=== PATIENT | female | born 1980 | race African-American/Black ===

== ENCOUNTER 2022-09-20 19:30 | Inpatient (IN) | payer MEDICARE ==
[2022-09-20] MEDS ORDERED: MAGNESIUM HYDROXIDE 2,400 MG/30 ML CUP PO PRN (20:32)
[2022-09-20] MEDS ORDERED: MAG HYDROX/AL HYDROX/SIMETH 30 ML CUP PO PRN (20:32)
[2022-09-20] MEDS ORDERED: ACETAMINOPHEN TAB 325 MG TAB PO PRN (20:32)
[2022-09-20] MEDS ORDERED: HALOPERIDOL LACTATE 5 MG/ML 1 ML VIAL IM PRN (20:35)
[2022-09-20] MEDS ORDERED: haloperidoL 5 MG TAB PO PRN (20:35)
[2022-09-20] MEDS ORDERED: LORazepam 2 MG/ML INJ IM PRN (20:36)
[2022-09-20] MEDS ORDERED: traZODone HCL 100 MG TAB PO SCH (21:00)
--- NOTE | 2022-09-21 00:08 | P.CONS ---
History of Present Illness - Reason for Consult Consult date: 09/21/22 - History of Present Illness Patient is a 42-year-old female with no known PMH who was transferred from [facility] with the patient initially had presented with psychosis. The patient was transferred to [facility] unit where she was seen and evaluated accompanied by a mental health unit RN. The patient denied any chronic medical illnesses. She also denied any physical complaints. She reports she feels well and is wishing to be discharged from the hospital. She had experienced chest discomfort, shortness of breath, fever, chills, cough, nausea, vomiting, abdominal pain, diarrhea. She reports smoking half pack of cigarettes daily. Denied illicit substance or alcohol use. Review of systems: Pertinent positives and negatives as discussed in HPI, a complete review of systems was performed and all other systems are negative. Physical examination: General: non toxic, no distress, appears at stated age, obese Derm: no unusual rashes/lesions, no unusual ecchymoses, warm, dry Head: atraumatic, normocephalic, symmetric Eyes: EOMI, no lid lag, anicteric sclera ENT: Nose and ears atraumatic, no thrush, no pharyngeal erythema Neck: trachea midline, supple Mouth: no lip lesion, mucus membranes moist, poor dentition Cardiovascular: S1S2 reg, no murmur, no edema Lungs: CTA bilateral, no rhonchi, no rales , no accessory muscle use Abdominal: soft, nontender to palpation, no guarding Ext: no gross muscle atrophy, no contractures, Neuro: No gross focal neuro deficits noted Psych: Alert, oriented, pressured speech Assessment: Psychosis Tobacco abuse Plan: Defer management to primary psychiatry service Advised on the importance of cessation Thank you for allowing us to participate in the care of this patient. We will follow peripherally. Do not hesitate to contact us with questions. Someone can be reached from the [facility] hospitalist group at all hours of the day at [phone]. Past Medical History History of Any Multi-Drug Resistant Organisms: None Reported Smoking Status: Never smoker Medications and Allergies Home Medications Medication Instructions Recorded Confirmed Type No Known Home Medications 09/20/22 09/20/22 History Allergies Allergy/AdvReac Type Severity Reaction Status Date / Time No Known Allergies Allergy Verified 09/20/22 21:46 Physical Exam Vitals: Vital Signs Temp Pulse Resp BP 09/20/22 21:54 98.3 F 102 H 16 143/101 Intake and Output 09/20/22 09/20/22 09/21/22 14:59 22:59 06:59 Other: Weight 110 kg
--- NOTE | 2022-09-21 13:54 | P.HP ---
Psychiatric H&P - . H&P Date: 09/21/22 History & Physical: Allergies Allergy/AdvReac Type Severity Reaction Status Date / Time No Known Allergies Allergy Verified 09/20/22 21:46 Vital Signs Temp 98.3 F 09/20/22 21:54 Pulse 102 H 09/20/22 21:54 Resp 16 09/20/22 21:54 BP 143/101 09/20/22 21:54 Pulse Ox FiO2 Intake & Output 09/20/22 09/21/22 09/21/22 18:59 06:59 18:59 Weight 110 kg Laboratory Last Values TSH 2.820 mIU/L (0.465-4.680) 09/21/22 06:47 09/21/22 13:48 IDENTIFYING DATA: Patient is a 42-year-old -[place] female, currently lives alone in a duplex, has no kids and collects SSI HPI: Patient presented to the hospital as a transfer from [facility]. Patient apparently is a [facility] resident. Patient was transferred on a petition and certificate. Patient according to petition states that she "appears to be responding to internal stimuli, seen yelling at people who were not there. Exhibiting delusional thought". Petition also states that "content, spoke of great evil. Also exhibited unsanitary behaviors such as keeping personal hygiene and belongings in used toilet". Patient seen wandering the hallways today and agreeable district television writer. She was loud at times, appeared to have very poor insight and judgment. Believes that she did not have a mental illness, unkempt appearance poor hygiene. She claims that she was at [facility] for 4 days before being transferred. States that "the keysmith didn't have a court order on me" and states that the police brought her to the hospital anyways. She states that "it was for no reason at all". She claims that she was released from court and the police has brought her in. She has very poor insight, she was religiously preoccupied, rambling at times having loose associations. With seen responding to internal stimuli. Patient denies any paranoid denies any changes in mood or anxiety. States that her sleep and appetite are fair. She has poor reality testing. Patient denies any suicidal or homicidal ideations intent or plan. At this time patient denies any auditory or visual hallucinations. Patient denies any flight of ideas racing thoughts and increased in goal directed behavior. Patient admits to using cigarettes daily and marijuana recreationally. PAST PSYCHIATRIC HISTORY: Patient states that she does not have a mental illness. [Patient denies being on any psychiatric medications however when speaking about different medications she claims that she does not react to "all of them" and refuses any of them.] [Patient denies any previous psychiatric hospitalizations.] [Patient denies any psychiatric outpatient follow-up.] [Patient denies any history of suicide attempts in the past.] PMH:[denies] ALLERGIES: as per EMR CHEMICAL DEPENDENCY HISTORY: as per HPI FAMILY PSYCHIATRIC/SUBSTANCE USE HISTORY: Aims that she does not know most of her family. SOCIAL HISTORY: Patient was born and raised in [place]. States that she completed high school and did some college. Denies any legal history. Claims that she does not have any kids, lives alone in a duplex, collects SSI]. MENTAL STATUS EXAM: General Appearance: Patient appears to be overweight, disheveled appearance, stated age is alert, difficult to redirect, attempts to cooperate. Patient appears to have [poor] hygiene and grooming. Behavior: Patient is seated without any agitated behavior. Loud at times, intrusive. Responding to internal stimuli. Speech: Patient's speech is [fluent and nonpressured.] Loud at times. Mood/Affect: Patient reports their mood is ["okay"], affect is congruent Suicidality/Homicidality: Patient denies having any homicidal ideation intent or plan. [Denies any suicidal ideations intent or plan] Perceptions: Patient denies any visual hallucinations [and denies any auditory hallucinations] Though content/process: [There is no evidence of any delusional thought content.] Rambling, loose associations. Religiously preoccupied Memory and concentration: AOX3, grossly intact for the purposes of this session. Can spell "WORLD" backwards Judgment and insight: [poor] STRENGTHS/WEAKNESSES: strength is that patient is [resilient]. Weakness is that patient [has poor judgment and is impulsive] INTELLECT: [average] IMPRESSIONS: []Schizophrenia Cannabis use disorder Nicotine dependence PLAN: -Patient is admitted under [involuntary] status to MHU for stabilization of psychiatric symptoms and safety. Patient has [not] signed [adult voluntary form and] [medication consent] and is placed in patient's chart. [A second certification was completed and along with petition will be filed for court.] -Medications : Will start patient on [will start paliperidone by mouth 3 mg daily at bedtime for psychosis, trazodone when necessary daily at bedtime for insomnia.] -Ativan [and Haldol] PRN for agitation/aggression -Patient was informed of the risks, benefits and side effects of the medication -Internal Medicine consult to perform medical evaluation and physical. -NRT - [nicotine patch] -SW on board for discharge planning. Encourage patient to participate in groups to work on coping skills. [Will await deferral and court date.]
[2022-09-21] MEDS: NICOTINE 14MG/24HR PATCH TRANSDERM SCH (13:55)
[2022-09-21 14:38] LABS: Chol/HDL Ratio 3.23 Ratio; LDL Cholesterol,Calculated 87.9 mg/dL (0.0-131.0); VLDL Calculation 16.36 mg/dL (5.00-40.00)
[2022-09-21] MEDS: PALIPERIDONE 3 MG TAB.ER.24 PO SCH (19:54)
[2022-09-22] MEDS: NICOTINE 14MG/24HR PATCH TRANSDERM SCH (09:28)
--- NOTE | 2022-09-22 13:37 | P.PN ---
Progress Note - Text Progress Note Date: 09/22/22 Interval history: Patient was seen sitting on her bed and was directable and agreeable to speak with food writer. Patient was reading out loud the Bible. She continues to adamantly refuse medications and believes that she does not need to be in the hospital. She was asking about her claim attorney. She continues to be focused on discharge and minimizing her need for psychiatric treatment. Has been going to minimal groups, continuing his poor hygiene and she gained and poor grooming, denying any mood or anxiety. Intent is to be noted to be speaking to herself. At this time patient denies any suicidal or homicidal ideations intent or plan. Denies any Auditory or visual hallucinations. Mental status exam: General Appearance: Patient appears to be mildly overweight, disheveled appearance stated age is alert, directable. Behavior: No agitated behavior. Patient is calm and directable responding to internal stimuli. Speech: Patient's speech is fluent and nonpressured. [place] Mood/Affect: Mood is improving mildly, affect is congruent and constricted. Suicidality/Homicidality: Patient denies having any suicidal or homicidal ideation intent or plan. Perceptions: Patient denies any auditory or visual hallucinations. Though content/process: Religiously preoccupied, minimizing her need for treatment. [place]. Memory and concentration: AOX3, grossly intact for the purposes of this session Judgment and insight: Poor Assessment/Plan: Continue with current diagnosis. Patient continues to meet criteria for inpatient psychiatric admission for symptom stabilization and safety.Patient will be maintained on current psychotropic medication regimen. patient has been refusing her medications. Monitor for medication compliance and for any psychotropic medication side effects. Will continue to monitor ongoing response to treatment. Encouraged participation in milieu. awaiting court and deferral date
[2022-09-22] MEDS: PALIPERIDONE 3 MG TAB.ER.24 PO SCH (20:35)
[2022-09-23] MEDS: NICOTINE 14MG/24HR PATCH TRANSDERM SCH (12:03)
--- NOTE | 2022-09-23 12:59 | P.PN ---
Progress Note - Text Progress Note Date: 09/23/22 Interval History: Patient was seen resting in bed and was directable and agreeable to speak with freelance writer in her room. Nightly, the patient is not overtly reporting any suicidal or homicidal ideation, intention, or plan. She reports no auditory or visual hallucinations. She denies any paranoia or other delusions. However, the patient displays significant poverty of thought is unable to provide any clear history of events leading up to this hospitalization. She also firmly states that she does not require any medications in regards to her general mental health. She is noted to be responding to internal stimuli. Mental Status Exam: General Appearance: Patient appears to be stated age is alert, directable, and cooperative. Behavior: Patient is calmly seated without any agitated behavior. Speech: Patient's speech is fluent and nonpressured. Nonspontaneous. Minimal. Monotone. Mood/Affect: Mood is "I don't need to be here," affect is blunted. Suicidality/Homicidality: Patient denies any suicidal or homicidal ideation. Perceptions: Patient denies any visual hallucinations and denies any auditory hallucinations Though content/process: [place]. Poverty of thought. Memory and concentration: AOX3, grossly intact for the purposes of this session Judgment and insight: Very poor Vital Signs Temp 98.3 F 09/20/22 21:54 Pulse 108 H 09/23/22 01:32 Resp 18 09/23/22 01:32 BP 149/101 09/23/22 01:32 Pulse Ox 99 09/23/22 01:32 FiO2 Intake & Output 09/22/22 09/23/22 09/23/22 18:59 06:59 18:59 Weight 110 kg Assessment Schizophrenia Cannabis use disorder Nicotine dependence Plan: -Patient continues to meet criteria for inpatient psychiatric admission for symptom stabilization and safety. The patient has been petitioned and certified. -Medications: Continue Invega 3 mg by mouth at bedtime. Patient is refusing her medication. -When necessary Ativan and Haldol for agitation/aggression. -NRT - nicotine patch -SW on board for discharge planning. Encouraged the patient to participate in milieu.
[2022-09-23] MEDS: PALIPERIDONE 3 MG TAB.ER.24 PO SCH (21:11)
[2022-09-24] MEDS: NICOTINE 14MG/24HR PATCH TRANSDERM SCH (08:39)
--- NOTE | 2022-09-24 12:48 | P.PN ---
Progress Note - Text Progress Note Date: 09/24/22 Interval History: Patient was seen resting in bed and appeared to be in no acute distress. She is minimal and conversation with this provider. She was noted by staff to be awake at night responding to internal stimuli. She was talking loudly up and down the chen became irritated when approached. She is eventually able to be directed back to her room. She continues to refuse any medications. Mental Status Exam: General Appearance: Patient appears to be stated age is alert, directable, and cooperative. Behavior: Patient is calmly seated without any agitated behavior. Speech: Patient's speech is fluent and nonpressured. Nonspontaneous. Minimal. Monotone. Mood/Affect: Mood is "when can I go," affect is flat Suicidality/Homicidality: Patient denies any suicidal or homicidal ideation. Perceptions: Patient denies any visual hallucinations and denies any auditory hallucinations Though content/process: [place]. Poverty of thought. Memory and concentration: AOX3, grossly intact for the purposes of this session Judgment and insight: Very poor Vital Signs Temp 97.8 F 09/24/22 06:54 Pulse 85 09/24/22 06:54 Resp 20 09/24/22 06:54 BP 143/85 09/24/22 06:54 Pulse Ox 99 09/23/22 01:32 FiO2 Laboratory Results Triglycerides 81.80 mg/dL (0.00-149.00) 09/21/22 06:47 Cholesterol 151.00 mg/dL (0.00-200.00) 09/21/22 06:47 LDL Cholesterol, Calc 87.9 mg/dL (0.0-131.0) 09/21/22 06:47 VLDL Cholesterol, Calc 16.36 mg/dL (5.00-40.00) 09/21/22 06:47 HDL Cholesterol 46.70 mg/dL (40.00-60.00) 09/21/22 06:47 Cholesterol/HDL Ratio 3.23 Ratio 09/21/22 06:47 TSH 2.820 mIU/L (0.465-4.680) 09/21/22 06:47 Assessment Schizophrenia Cannabis use disorder Nicotine dependence Plan: -Patient continues to meet criteria for inpatient psychiatric admission for symptom stabilization and safety. The patient has been petitioned and certified. -Medications: Change medication to Risperdal 2 mg by mouth twice a day. Patient is refusing her medication. -When necessary Ativan and Haldol for agitation/aggression. -NRT - nicotine patch -SW on board for discharge planning. Encouraged the patient to participate in milieu.
[2022-09-24] MEDS: risperiDONE 2 MG TAB PO SCH (20:39)
[2022-09-25] MEDS: NICOTINE 14MG/24HR PATCH TRANSDERM SCH (09:04)
[2022-09-25] MEDS: risperiDONE 2 MG TAB PO SCH ×2 (09:04→20:55)
--- NOTE | 2022-09-25 11:47 | P.PN ---
Progress Note - Text Progress Note Date: 09/25/22 Interval History: Patient was seen resting in bed and appeared to be in no acute distress. She continues to be minimal in conversation. She is overtly denying any suicidal or homicidal ideation, intention, and/or plan. She is denying any auditory or visual hallucinations. Paranoia or other delusions. She continues to refuse any psychotropic medications. She has been noted by staff to attend group this morning. The patient remains fixated on discharge however is continuing to refuse any medications. He continues to be observed to be responding to internal stimuli. Mental Status Exam: Grossly unchanged General Appearance: Patient appears to be stated age is alert, directable, and cooperative. Behavior: Patient is calmly seated without any agitated behavior. Speech: Patient's speech is fluent and nonpressured. Nonspontaneous. Minimal. Monotone. Mood/Affect: Mood is "can I go home?," affect is flat Suicidality/Homicidality: Patient denies any suicidal or homicidal ideation. Perceptions: Patient denies any visual hallucinations and denies any auditory hallucinations Though content/process: [place]. Poverty of thought. Memory and concentration: AOX3, grossly intact for the purposes of this session Judgment and insight: Very poor Vital Signs Temp 97.8 F 09/24/22 06:54 Pulse 85 09/24/22 06:54 Resp 20 09/24/22 06:54 BP 143/85 09/24/22 06:54 Pulse Ox 99 09/23/22 01:32 FiO2 Assessment Schizophrenia Cannabis use disorder Nicotine dependence Plan: -Patient continues to meet criteria for inpatient psychiatric admission for symptom stabilization and safety. The patient has been petitioned and certified. Court scheduled for Friday. -Medications: Change medication to Risperdal 2 mg by mouth twice a day. Patient is refusing her medication. -When necessary Ativan and Haldol for agitation/aggression. -NRT - nicotine patch -SW on board for discharge planning. Encouraged the patient to participate in milieu.
[2022-09-26] MEDS: NICOTINE 14MG/24HR PATCH TRANSDERM SCH (08:26)
[2022-09-26] MEDS: risperiDONE 2 MG TAB PO SCH ×2 (08:26→21:47)
--- NOTE | 2022-09-26 11:44 | P.PN ---
Progress Note - Text Progress Note Date: 09/26/22 Interval History: Patient was seen wandering the hallways and was agreeable to speak with narrative writer in the office. Prior to walking into the office, the patient was noted to be speaking to herself. It to be responding to internal stimuli. Upon assessment in the office, the patient is vehemently denying any suicidal or homicidal ideation, intention, and/or plan. She is not reporting any auditory or visualizations. She is denying any paranoia or other delusions. The patient was informed that she is scheduled for court on Friday. She vehemently denies this. She states that she does not need to go to court and she does not need any medications. Mental Status Exam: General Appearance: Patient appears to be stated age is alert, directable, and cooperative. Behavior: Patient is calmly seated without any agitated behavior. Speech: Patient's speech is fluent and nonpressured. Nonspontaneous. Minimal. Monotone. Mood/Affect: Mood is "I'm not going to court," affect is flat Suicidality/Homicidality: Patient denies any suicidal or homicidal ideation. Perceptions: Patient denies any visual hallucinations and denies any auditory hallucinations Though content/process: [place]. Poverty of thought. Illogical. Memory and concentration: AOX3, grossly intact for the purposes of this session Judgment and insight: Very poor Vital Signs Temp 97.1 F L 09/26/22 06:52 Pulse 67 09/26/22 06:52 Resp 16 09/26/22 06:52 BP 140/100 09/26/22 06:52 Pulse Ox 99 09/23/22 01:32 FiO2 Intake & Output 09/25/22 09/26/22 09/26/22 18:59 06:59 18:59 Weight 110 kg Assessment Schizophrenia Cannabis use disorder Nicotine dependence Plan: -Patient continues to meet criteria for inpatient psychiatric admission for symptom stabilization and safety. The patient has been petitioned and certified . Court scheduled for Friday. -Medications: Change medication to Risperdal 2 mg by mouth twice a day. Patient is refusing her medication. -When necessary Ativan and Haldol for agitation/aggression. -NRT - nicotine patch -SW on board for discharge planning. Encouraged the patient to participate in milieu.
[2022-09-26 11:49] LABS: Basophils % (A) 0 %; Eosinophils # (A) 0.1 k/uL (0-0.7); Eosinophils % (A) 2 %; HCT 36.7 % (34.0-46.0); HGB 11.5 gm/dL (11.4-16.0); Hypochromasia Slight; Lymphocytes # (A) 1.9 k/uL (1.0-4.8); Lymphocytes % (A) 32 %; MCH 27.1 pg (25.0-35.0); MCHC 31.2 g/dL (31.0-37.0); MCV 86.8 fL (80.0-100.0); Mean Platelet Volume 7.1; Monocytes # (A) 0.4 k/uL (0-1.0); Monocytes % (A) 7 %; Neutrophils # (A) 3.3 k/uL (1.3-7.7); Neutrophils % (A) 57 %; Platelet Count 325 k/uL (150-450); RBC 4.22 m/uL (3.80-5.40); RDW 15.4 % (11.5-15.5); WBC 5.9 k/uL (3.8-10.6)
[2022-09-26 12:09] LABS: ALT 32 U/L (4-34); AST 24 U/L (14-36); African American GFR (CKD) 77 (>60 ml/min/1.73 sqM); Albumin 3.8 g/dL (3.5-5.0); Alkaline Phosphatase 115 U/L (38-126); Anion Gap 8 mmol/L; Blood Urea Nitrogen 17 mg/dL (7-17); Calcium 9.1 mg/dL (8.4-10.2); Carbon Dioxide 29 mmol/L (22-30); Chloride 101 mmol/L (98-107); Glucose 96 mg/dL (74-99); Non-African American GFR(CKD) 67 (>60 ml/min/1.73 sqM); Potassium 4.5 mmol/L (3.5-5.1); Sodium 138 mmol/L (137-145); Total Bilirubin 0.4 mg/dL (0.2-1.3); Total Protein 7.1 g/dL (6.3-8.2)
[2022-09-27] MEDS: risperiDONE 2 MG TAB PO SCH ×2 (08:27→20:58)
[2022-09-27] MEDS: NICOTINE 14MG/24HR PATCH TRANSDERM SCH (08:27)
--- NOTE | 2022-09-27 11:05 | P.PN ---
Progress Note - Text Progress Note Date: 09/27/22 Interval History: Patient was seen resting in bed and agreeable to speak with the senior grant writer in her room. Currently, the patient is overtly denying any suicidal or homicidal ideation, intention, and/or plan. She is overtly denying any auditory or visual hallucinations. She continues to refuse any medication. She reports no medical issues or concerns and denies any chest pain, stress breath, palpitations, lightheadedness, or blurry vision. She was reminded that she has court sched uled for Friday. The patient is in agreement for court and reports that she will tell them how she does not require any medications. She continues to be observed by staff to respond to internal stimuli. Mental Status Exam: General Appearance: Patient appears to be stated age is alert, directable, and cooperative. Behavior: Patient is calmly seated without any agitated behavior. Speech: Patient's speech is fluent and nonpressured. Nonspontaneous. Minimal. Monotone. Mood/Affect: Mood is "I'm okay," affect is flat Suicidality/Homicidality: Patient denies any suicidal or homicidal ideation. Perceptions: Patient denies any visual hallucinations and denies any auditory hallucinations Though content/process: [place]. Poverty of thought. Illogical. Memory and concentration: AOX3, grossly intact for the purposes of this session Judgment and insight: Very poor Vital Signs Temp 97.8 F 09/27/22 05:57 Pulse 94 09/27/22 05:57 Resp 18 09/27/22 05:57 BP 139/108 09/27/22 05:57 Pulse Ox 100 09/27/22 05:57 FiO2 Laboratory Results - Last 24 Hours 09/26/22 09/26/22 10:42 10:42 WBC 5.9 RBC 4.22 Hgb 11.5 Hct 36.7 MCV 86.8 MCH 27.1 MCHC 31.2 RDW 15.4 Plt Count 325 MPV 7.1 Neutrophils % 57 Lymphocytes % 32 Monocytes % 7 Eosinophils % 2 Basophils % 0 Neutrophils # 3.3 Lymphocytes # 1.9 Monocytes # 0.4 Eosinophils # 0.1 Basophils # 0.0 Hypochromasia Slight Sodium 138 Potassium 4.5 Chloride 101 Carbon Dioxide 29 Anion Gap 8 BUN 17 Creatinine 1.04 Est GFR (CKD-EPI)AfAm 77 Est GFR (CKD-EPI)NonAf 67 Glucose 96 Calcium 9.1 Total Bilirubin 0.4 AST 24 ALT 32 Alkaline Phosphatase 115 Total Protein 7.1 Albumin 3.8 Assessment Schizophrenia Cannabis use disorder Nicotine dependence Plan: -Patient continues to meet criteria for inpatient psychiatric admission for symptom stabilization and safety. The patient has been petitioned and certified. Court scheduled for Friday. -Medications: We'll continue Risperdal 2 mg by mouth twice a day. Patient is refusing her medication. -When necessary Ativan and Haldol for agitation/aggression. -NRT - nicotine patch -SW on board for discharge planning. Encouraged the patient to participate in milieu.
[2022-09-28 06:47] VITALS: TEMP 98.3
[2022-09-28] MEDS: risperiDONE 2 MG TAB PO SCH ×3 (09:20→20:54)
[2022-09-28] MEDS: NICOTINE 14MG/24HR PATCH TRANSDERM SCH (09:26)
--- NOTE | 2022-09-28 12:01 | P.PN ---
Subjective Progress Note Date: 09/28/22 Principal diagnosis: Assessment Schizophrenia Cannabis use disorder Nicotine dependence Patient Name: Michelle Marie Date of : 80 Patient Status: Inpatient Attending Provider: Miguel Allen Subjective data: An attempt was made to see the patient for assessment Patient was laying in her bed and was sleeping comfortably but was easily arousable However on waking up the patient continues to ramble with significant flight of ideas circumstantiality and tangentiality It is unable to have any reasonable conversation with this patient due to her psychosis circumstantiality and pressured speech Mental Status Exam: General Appearance: Patient appears to be stated age is alert, unable to be directable, Behavior: Patient was laying down initially and was easily aroused Speech: Patient's speech is fluent and pressured. Speech is pressured circumstantial and tangential. Mood/Affect: Mood is "I'm okay," affect is flat Suicidality/Homicidality: Patient denies any suicidal or homicidal ideation. Perceptions: Patient denies any visual hallucinations and denies any auditory hallucinations Though content/process: [place]. Poverty of thought. Illogical. Memory and concentration: AOX3, Judgment and insight: Very poor Assessment Schizophrenia Cannabis use disorder Nicotine dependence Plan: -Patient continues to meet criteria for inpatient psychiatric admission for symptom stabilization and safety. The patient has been petitioned and certified. Court scheduled for Friday. -Medications: We'll continue Risperdal 2 mg by mouth twice a day. Patient is refusing her medication. -When necessary Ativan and Haldol for agitation/aggression. -NRT - nicotine patch - on board for discharge planning. Encouraged the patient to participate in milieu. Jose Carlos Ulrich M.D. 09/28/2022 Objective - Vital Signs Vital signs: Vital Signs Temp 98.3 F 09/28/22 05:00 Pulse 106 H 09/28/22 05:00 Resp 19 09/28/22 05:00 BP 104/67 09/28/22 05:00 Pulse Ox 99 09/28/22 05:00 FiO2 - Labs CBC & Chem 7: 09/26/22 10:42 09/26/22 10:42
[2022-09-28] MEDS: LORazepam 1 MG TAB PO PRN (21:45)
[2022-09-28] MEDS: traZODone HCL 100 MG TAB PO PRN (21:46)
[2022-09-29] MEDS: NICOTINE 14MG/24HR PATCH TRANSDERM SCH (09:06)
[2022-09-29] MEDS: risperiDONE 2 MG TAB PO SCH ×2 (09:06→20:48)
--- NOTE | 2022-09-29 10:13 | P.PN ---
Subjective Progress Note Date: 09/29/22 Principal diagnosis: Assessment Schizophrenia Cannabis use disorder Nicotine dependence Patient Name: Michelle Marie Date of : 80 Patient Status: Inpatient Attending Provider: Miguel Allen Subjective data: An attempt was made to see the patient for assessment Patient was laying in her bed and was sleeping comfortably but was easily arousable The patient states that she is doing well She stated that she slept well Patient is responses are quick and abrupt She says that she is living the hospital tomorrow and she is completely fine She said that she has no problems or issues Mental Status Exam: General Appearance: Patient appears to be stated age is alert, unable to be directable, Behavior: Patient was laying down initially and was easily aroused Speech: Patient's speech is fluent and pressured. Speech is pressured circumstantial and tangential. Mood/Affect: Mood is "I'm okay," affect is flat Suicidality/Homicidality: Patient denies any suicidal or homicidal ideation. Perceptions: Patient denies any visual hallucinations and denies any auditory hallucinations Though content/process: [place]. Poverty of thought. Illogical. Memory and concentration: AOX3, Judgment and insight: Very poor Assessment Schizophrenia Cannabis use disorder Nicotine dependence Plan: -Patient continues to meet criteria for inpatient psychiatric admission for symptom stabilization and safety. The patient has been petitioned and certified. Court scheduled for Friday. -Medications: We'll continue Risperdal 2 mg by mouth twice a day. Patient is refusing her medication. -When necessary Ativan and Haldol for agitation/aggression. -NRT - nicotine patch - on board for discharge planning. Encouraged the patient to participate in milieu. Jose Carlos Ulrich M.D. 09/29/2022 Objective - Vital Signs Vital signs: Vital Signs Temp 98.3 F 09/28/22 05:00 Pulse 106 H 09/28/22 05:00 Resp 19 09/28/22 05:00 BP 104/67 09/28/22 05:00 Pulse Ox 99 09/28/22 05:00 FiO2 - Labs CBC & Chem 7: 09/26/22 10:42 09/26/22 10:42
[2022-09-29] MEDS: traZODone HCL 100 MG TAB PO PRN (20:48)
[2022-09-30] MEDS: LORazepam 1 MG TAB PO PRN (02:14)
[2022-09-30] MEDS: risperiDONE 2 MG TAB PO SCH (09:06)
[2022-09-30] MEDS: NICOTINE 14MG/24HR PATCH TRANSDERM SCH ×2 (09:06→09:12)
[2022-09-30] MEDS ORDERED: flUPHENAZine 2.5 MG/ML (MDV) 10 ML VIAL IM PRN (11:38)
--- NOTE | 2022-09-30 11:38 | P.PN ---
Progress Note - Text Progress Note Date: 09/30/22 Interval History: Patient was seen resting in bed and agreeable to speak with the development writer in her room. The patient did attend court this morning with [facility]. The patient is now court ordered for mental health treatment. Currently, the patient is not reporting any suicidal or homicidal ideation, intention, and/or plan. She is not reporting any auditory or visual hallucinations. She maintains that she has "been through the whole psychiatric system and therefore is done with it." She was informed that now she is court ordered for medication that she needs to be adherent and that we plan to transition to a long-acting injectable. She has been adherent with her medications and is not reporting any side effects however expresses that she does not require the long-acting injectable medication. She continues to remain primarily isolative to herself in her room. Mental Status Exam: General Appearance: Patient appears to be stated age is alert, directable, and cooperative. Behavior: Patient is calmly seated without any agitated behavior. Speech: Patient's speech is fluent and nonpressured. More spontaneous today. Minimal. Mood/Affect: Mood is "I'm okay," affect is flat Suicidality/Homicidality: Patient denies any suicidal or homicidal ideation. Perceptions: Patient denies any visual hallucinations and denies any auditory hallucinations Though content/process: [place]. Memory and concentration: AOX3, grossly intact for the purposes of this session Judgment and insight: Very poor Vital Signs Temp 98.3 F 09/28/22 05:00 Pulse 106 H 09/28/22 05:00 Resp 19 09/28/22 05:00 BP 104/67 09/28/22 05:00 Pulse Ox 99 09/28/22 05:00 FiO2 Assessment Schizophrenia Cannabis use disorder Nicotine dependence Plan: -Patient continues to meet criteria for inpatient psychiatric admission for symptom stabilization and safety. The patient has been petitioned and certified. Patient attended court and has been court ordered for mental health treatment. Awaiting paperwork. -Medications: Increase Risperdal to 3 mg by mouth twice a day. The patient refuses oral medication we will administer Prolixin IM. Plan to transition the patient to Risperdal perseris prior to discharge. -When necessary Ativan and Haldol for agitation/aggression. -NRT - nicotine patch -SW on board for discharge planning. Encouraged the patient to participate in milieu.
[2022-09-30] MEDS: risperiDONE 1 MG TAB PO SCH (21:34)
[2022-10-01] MEDS: LORazepam 1 MG TAB PO PRN (03:21)
[2022-10-01] MEDS: risperiDONE 1 MG TAB PO SCH ×2 (09:29→20:12)
[2022-10-01] MEDS: NICOTINE 14MG/24HR PATCH TRANSDERM SCH (09:30)
--- NOTE | 2022-10-01 12:42 | P.PN ---
Progress Note - Text Progress Note Date: 10/01/22 Interval History: Patient was seen wandering the hallways and was agreeable to speak with proposal manager writer in the office. Currently, the patient is not reporting any suicidal or homicidal ideation, intention, and/or plan. She is not reporting any auditory or visual hallucinations. She is denying any overt paranoia or other delusions. The patient was noted to only sleeps 3 hours last night and cannot sleep at all the night before. The patient reports that she likes to stay up at night because that is the ideal time for her to "study the Bible." She has been adherent with her medications and is not reporting any significant side effects. She is now court ordered for medications. However, the patient does report that she does not wish to be on any long-acting injectable medication. She has been attending groups. She reports no issues regarding her appetite. Mental Status Exam: General Appearance: Patient appears to be stated age is alert, directable, and cooperative. Behavior: Patient is calmly seated without any agitated behavior. Speech: Patient's speech is fluent and nonpressured. More spontaneous today. Mood/Affect: Mood is "I'm okay," affect is blunted. Slightly more range today. Suicidality/Homicidality: Patient denies any suicidal or homicidal ideation. Perceptions: Patient denies any visual hallucinations and denies any auditory hallucinations Though content/process: [place]. Memory and concentration: AOX3, grossly intact for the purposes of this session Judgment and insight: Very poor Vital Signs Temp 98.3 F 09/28/22 05:00 Pulse 106 H 09/28/22 05:00 Resp 19 09/28/22 05:00 BP 104/67 09/28/22 05:00 Pulse Ox 99 09/28/22 05:00 FiO2 Assessment Schizophrenia Cannabis use disorder Nicotine dependence Plan: -Patient continues to meet criteria for inpatient psychiatric admission for symptom stabilization and safety. The patient has been petitioned and certified. Patient attended court and has been court ordered for mental health treatment. Awaiting paperwork. -Medications: Continue Risperdal 3 mg by mouth twice a day. The patient refuses oral medication we will administer Prolixin IM. We'll administer Risperdal perseris tomorrow. Start Trazodone 100 mg daily at bedtime for insomnia Start melatonin 5 mg daily at bedtime for insomnia -When necessary Ativan and Haldol for agitation/aggression. -NRT - nicotine patch -SW on board for discharge planning. Encouraged the patient to participate in milieu.
[2022-10-01] MEDS: MELATONIN 5 MG TABLET PO SCH (20:12)
[2022-10-01] MEDS: traZODone HCL 100 MG TAB PO SCH (20:12)
[2022-10-02] MEDS: LORazepam 1 MG TAB PO PRN (01:39)
[2022-10-02] MEDS: NICOTINE 14MG/24HR PATCH TRANSDERM SCH (09:59)
[2022-10-02] MEDS: risperiDONE 1 MG TAB PO SCH (10:04)
[2022-10-02] MEDS ORDERED: risperiDONE 120 MG SYR (NO COST) PHARMACY STOCK SQ ONE (11:00)
--- NOTE | 2022-10-02 11:03 | P.PN ---
Progress Note - Text Progress Note Date: 10/02/22 Interval History: Patient was seen resting in bed and was agreeable to speak with medical underwriter in her room. Currently, the patient is not reporting any suicidal or homicidal ideation, intention, and/or plan. She is not reporting any auditory or visual hallucinations. She slept for 5 hours last night. She is not reporting any side effects of her medications and has been adherent. She reports no medical issues or concerns. She is court ordered and is agreeable to risperidone perseris tomariela ay. Mental Status Exam: General Appearance: Patient appears to be stated age is a little somnolent but, directable, and cooperative. Behavior: Patient is calmly seated without any agitated behavior. Speech: Patient's speech is fluent and nonpressured. Spontaneous. Mood/Affect: Mood is "I'm good," affect is somnolent. Suicidality/Homicidality: Patient denies any suicidal or homicidal ideation. Perceptions: Patient denies any visual hallucinations and denies any auditory hallucinations Though content/process: [place]. Memory and concentration: AOX3, grossly intact for the purposes of this session Judgment and insight: Very poor Vital Signs Temp 98.3 F 09/28/22 05:00 Pulse 106 H 09/28/22 05:00 Resp 19 09/28/22 05:00 BP 104/67 09/28/22 05:00 Pulse Ox 99 09/28/22 05:00 FiO2 Assessment Schizophrenia Cannabis use disorder Nicotine dependence Plan: -Patient continues to meet criteria for inpatient psychiatric admission for symptom stabilization and safety. The patient has been petitioned and certified. Patient attended court and has been court ordered for mental health treatment. -Medications: Administer Risperdal Perseris 120 mg SQ today. Discontinue oral risperdal. Continue Trazodone 100 mg daily at bedtime for insomnia Continue melatonin 5 mg daily at bedtime for insomnia -When necessary Ativan and Haldol for agitation/aggression. -NRT - nicotine patch -SW on board for discharge planning. Encouraged the patient to participate in milieu.
[2022-10-02 14:02] VITALS: BMI 44.3
[2022-10-02] MEDS: traZODone HCL 100 MG TAB PO SCH (21:26)
[2022-10-02] MEDS: MELATONIN 5 MG TABLET PO SCH (21:26)
[2022-10-03] MEDS: NICOTINE 14MG/24HR PATCH TRANSDERM SCH (08:28)
[2022-10-03 10:27] VITALS: BP 132/89; PULSE 109; RESP 20
--- NOTE | 2022-10-03 13:25 | P.DS ---
Providers Date of admission: 09/20/22 21:07 Expected date of discharge: 10/03/22 Attending physician: Miguel Allen MD Consults: 09/20/22 20:32 Consult Physician Routine Consulting Provider: Jamel Tierney Consult Reason/Comments: medical management Do you want consulting provider notified?: Yes Primary care physician: Stated None - Discharge Diagnosis(es) (1) Schizophrenia Current Visit: Yes Status: Acute Priority: High (2) Cannabis use disorder Current Visit: Yes Status: Chronic Priority: Medium (3) Nicotine dependence Current Visit: Yes Status: Chronic Priority: Low Hospital Course: Admission HPI: Initial psychiatric evaluation was completed by Dr. Armendariz on 09/21/2022 who wrote: Patient is a 42-year-old -[place] female, currently lives alone in a duplex, has no kids and collects SSI HPI: Patient presented to the hospital as a transfer from [facility]. Patient apparently is a [facility] resident. Patient was transferred on a petition and certificate. Patient according to petition states that she "appears to be responding to internal stimuli, seen yelling at people who were not there. Exhibiting delusional thought". Petition also states that "content, spoke of great evil. Also exhibited unsanitary behaviors such as keeping personal hygiene and belongings in used toilet". Patient seen wandering the hallways today and agreeable district information writer. She was loud at times, appea red to have very poor insight and judgment. Believes that she did not have a mental illness, unkempt appearance poor hygiene. She claims that she was at [facility] for 4 days before being transferred. States that "the chiller technician didn't have a court order on me" and states that the police brought her to the hospital anyways. She states that "it was for no reason at all". She claims that she was released from court and the police has brought her in. She has very poor insight, she was religiously preoccupied, rambling at times having loose associations. With seen responding to internal stimuli. Patient denies any paranoid denies any changes in mood or anxiety. States that her sleep and appetite are fair. She has poor reality testing. Patient denies any suicidal or homicidal ideations intent or plan. At this time patient denies any auditory or visual hallucinations. Patient denies any flight of ideas racing thoughts and increased in goal directed behavior. Patient admits to using cigarettes daily and marijuana recreationally. PAST PSYCHIATRIC HISTORY: Patient states that she does not have a mental illness. Patient denies being on any psychiatric medications however when speaking about different medications she claims that she does not react to "all of them" and refuses any of them. Patient denies any previous psychiatric hospitalizations. Patient denies any psychiatric outpatient follow-up. Patient denies any history of suicide attempts in the past. Hospital course: Upon admission to the unit patient was initially presenting as disheveled, responding to internal stimuli, nor overtly psychotic. Patient displayed limited insight and poor judgment. A second clinical certificate was filled out and along with the petition were filed for court. Over the course the hospital physician, the patient was nonadherent with her prescribed medications. Eventually, she was agreeable to starting risperidone. The patient went to court on 09/30/[address] ordered by [facility] for mental health treatment. As the patient continues to take her oral medications, she displayed significant improvement in regards her target symptoms of psychosis and sleep. Prior to her medications, there would be episodes with the patient was responding to internal stimuli, especially at nighttime. There were a few nights during this hospitalization with the patient did not sleep at all. Trazodone and melatonin were added to her regimen in order to address her insomnia. The patient was also eventually transition to risperidone perseris 120 mg SQ on 10/02/2022. On the day of discharge, the patient is not reporting any suicidal or homicidal ideation, intention, and/or plan. She is not reporting any auditory or visual hallucinations. She is not reporting any paranoia or other delusions. She has been calm, cooperative, and directable. She is not responding to any internal stimuli. She is future and goal oriented and displays better insight and judgment. The patient reported no access to firearms or other weapons. She does not have a significant history of substance abuse however was counseled great length on abstaining from all substances including alcohol, tobacco, and marijuana. The patient was counseled at length and he points medication adherence and appropriate outpatient follow-up. As the patient no longer met criteria for the inpatient psychiatric hospitalization, she was subsequently discharged with appropriate safety planning. Mental status exam: General Appearance: Patient appears to be stated age is alert, pleasant, and cooperative. Patient is in no acute distress and has much improved hygiene and grooming Behavior: Patient is calmly seated without any agitated behavior. Eye contact is appropriate. Speech: Patient's speech is fluent and nonpressured. Mood/Affect: Patient reports their mood is "doing good", affect is congruent and blunted. Appears to be baseline. Suicidality/Homicidality: Patient reports no suicidal or homicidal ideation. Perceptions: Patient denies any auditory or visual hallucinations. Though content/process: The patient is not forthcoming with any delusional thought content. She appears to be linear, logical, and future oriented in short conversation. Memory and concentration: AOX3, grossly intact for the purposes of this session. Can spell "WORLD" backwards correctly. Judgment and insight: Improved with guarded prognosis Impression: Schizophrenia Cannabis use disorder Nicotine dependence Plan: -Continue with discharge today as patient has improved and stabilized psych iatrically and is not currently an imminent threat to self and/or others. Patient will remain at chronically elevated risk due to the severity and chronicity of her mental illness. She also has reportedly a history of nonadherence with treatment. -Continue medications: Trazodone 100 mg by mouth at bedtime for insomnia Melatonin 5 mg daily at bedtime for insomnia Risperidone Perseris 120 mg SQ monthly -next dose due on 10/30/2022. -Patient was counseled on the need for medication compliance and appropriate follow-up at mental health and also primary care for medical issues. Patient verbalized understanding and agreed. -Social work to arrange for and conduct family meeting to ensure safety upon discharge and answer any questions/concerns. Social work also to arrange for patients follow up appointments with team wellness for psychiatric care along with follow up with primary care provider. -Patient counseled on abstaining from recreational drugs and marijuana and alcohol. Was informed/educated on the adverse effects on their physical and mental health. Patient verbally agreed and understood. -Patient was instructed to return to the hospital or seek immediate medical care if their psychiatric or medical symptoms do worsen or reoccur. -Psychoeducation and supportive therapy provided to patient. Risks and benefits of pharmacological treatment versus the risks and benefits of nontreatment weighed and discussed. Informed consent discussion held. Common side effects of psychotropics discussed such as, but not limited to headache, GI disturbance, sexual dysfunction, movement disorders, sedation, and orthostatic hypotension. Life threatening and blackbox warnings of prescribed medications also discussed. Potential risks of operating a vehicle or heavy machinery discussed with patient at length. Advised on importance of compliance and a reliable and responsible manner. Patient advised to review FDA consumer labeling of all medications prior to taking. Patient verbalized understanding of potential risks, and agrees with current treatment plan. Patient advised to medically contact physician/emergency personnel if any acute changes in condition occur. Vital Signs Temp 98.3 F 09/28/22 05:00 Pulse 109 H 10/03/22 10:26 Resp 20 10/03/22 10:26 BP 132/89 10/03/22 10:26 Pulse Ox 99 09/28/22 05:00 FiO2 Intake & Output 10/02/22 10/03/22 10/03/22 18:59 06:59 18:59 Weight 110 kg Laboratory Results WBC 5.9 k/uL (3.8-10.6) 09/26/22 10:42 RBC 4.22 m/uL (3.80-5.40) 09/26/22 10:42 Hgb 11.5 gm/dL (11.4-16.0) 09/26/22 10:42 Hct 36.7 % (34.0-46.0) 09/26/22 10:42 MCV 86.8 fL (80.0-100.0) 09/26/22 10:42 MCH 27.1 pg (25.0-35.0) 09/26/22 10:42 MCHC 31.2 g/dL (31.0-37.0) 09/26/22 10:42 RDW 15.4 % (11.5-15.5) 09/26/22 10:42 Plt Count 325 k/uL (150-450) 09/26/22 10:42 MPV 7.1 09/26/22 10:42 Neutrophils % 57 % 09/26/22 10:42 Lymphocytes % 32 % 09/26/22 10:42 Monocytes % 7 % 09/26/22 10:42 Eosinophils % 2 % 09/26/22 10:42 Basophils % 0 % 09/26/22 10:42 Neutrophils # 3.3 k/uL (1.3-7.7) 09/26/22 10:42 Lymphocytes # 1.9 k/uL (1.0-4.8) 09/26/22 10:42 Monocytes # 0.4 k/uL (0-1.0) 09/26/22 10:42 Eosinophils # 0.1 k/uL (0-0.7) 09/26/22 10:42 Basophils # 0.0 k/uL (0-0.2) 09/26/22 10:42 Hypochromasia Slight 09/26/22 10:42 Sodium 138 mmol/L (137-145) 09/26/22 10:42 Potassium 4.5 mmol/L (3.5-5.1) 09/26/22 10:42 Chloride 101 mmol/L (98-107) 09/26/22 10:42 Carbon Dioxide 29 mmol/L (22-30) 09/26/22 10:42 Anion Gap 8 mmol/L 09/26/22 10:42 BUN 17 mg/dL (7-17) 09/26/22 10:42 Creatinine 1.04 mg/dL (0.52-1.04) 09/26/22 10:42 Est GFR (CKD-EPI)AfAm 77 (>60 ml/min/1.73 sqM) 09/26/22 10:42 Est GFR (CKD-EPI)NonAf 67 (>60 ml/min/1.73 sqM) 09/26/22 10:42 Glucose 96 mg/dL (74-99) 09/26/22 10:42 Calcium 9.1 mg/dL (8.4-10.2) 09/26/22 10:42 Total Bilirubin 0.4 mg/dL (0.2-1.3) 09/26/22 10:42 AST 24 U/L (14-36) 09/26/22 10:42 ALT 32 U/L (4-34) 09/26/22 10:42 Alkaline Phosphatase 115 U/L (38-126) 09/26/22 10:42 Total Protein 7.1 g/dL (6.3-8.2) 09/26/22 10:42 Albumin 3.8 g/dL (3.5-5.0) 09/26/22 10:42 Triglycerides 81.80 mg/dL (0.00-149.00) 09/21/22 06:47 Cholesterol 151.00 mg/dL (0.00-200.00) 09/21/22 06:47 LDL Cholesterol, Calc 87.9 mg/dL (0.0-131.0) 09/21/22 06:47 VLDL Cholesterol, Calc 16.36 mg/dL (5.00-40.00) 09/21/22 06:47 HDL Cholesterol 46.70 mg/dL (40.00-60.00) 09/21/22 06:47 Cholesterol/HDL Ratio 3.23 Ratio 09/21/22 06:47 TSH 2.820 mIU/L (0.465-4.680) 09/21/22 06:47 Allergies Allergy/AdvReac Type Severity Reaction Status Date / Time No Known Allergies Allergy Verified 09/20/22 21:46 Patient Condition at Discharge: Stable Plan - Discharge Summary Discharge Rx Participant: No New Discharge Prescriptions: New traZODone HCL [Desyrel] 100 mg PO HS 30 Days #30 tab Melatonin 5 mg PO HS 30 Days #30 tab risperiDONE ER inj [Perseris] 120 mg SQ QMONTHLY 1 Days #1 each Discharge Medication List Melatonin 5 mg PO HS 30 Days #30 tab 10/03/22 [Rx] risperiDONE ER inj [Perseris] 120 mg SQ QMONTHLY 1 Days #1 each 10/03/22 [Rx] traZODone HCL [Desyrel] 100 mg PO HS 30 Days #30 tab 10/03/22 [Rx] Follow up Appointment(s)/Referral(s): Wellness,Teen [Other] - 10/10/22 9:00 am (with intake ) Activity/Diet/Wound Care/Special Instructions: Avoid the use of street drugs and alcohol. Take all medications as prescribed. When you are in need of refills on your medications, please contact your medical provider and/or outpatient psychiatrist to have this done. Please go to scheduled outpatient appointments for aftercare treatment. If symptoms return or become worse, call the crisis line at and/or go to the nearest emergency room for evaluation.
== END 2022-10-03 16:30 | disposition home or self-care (01) | DRG 885 ==
LOC: 3MHU 21:07
PROVIDERS: ADMIT Psychiatry & Neurology Psychiatry; ATTEND Psychiatry & Neurology Psychiatry
DX: F20.9 Schizophrenia, unspecified (principal); F12.10 Cannabis abuse, uncomplicated; F17.210 Nicotine dependence, cigarettes, uncomplicated; G47.00 Insomnia, unspecified; Z60.2 Problems related to living alone; Z71.3 Dietary counseling and surveillance; Z28.21 Immunization not carried out because of patient refusal
CPT/HCPCS: 80053; 80061; 84443; 85025